=== PATIENT | male | born 1945 | race Caucasian/White ===

== ENCOUNTER 2018-03-17 02:58 | Emergency (ER) | payer MEDICARE ==
[~2018-03-17] VITALS: Ht 175.3 cm; Wt 72.6 kg
[2018-03-17] MEDS ORDERED: FAMOTIDINE 20 MG/2 ML VIAL IV STA (03:29)
[2018-03-17] MEDS ORDERED: DONNATAL/LIDOCAINE/MAALOX 30 ML SUSP PO ONE (03:30)
--- NOTE | 2018-03-17 04:30 | Diagnostic Imaging Report ---
Exam: PA and lateral view of the chest Indication: Chest pain Comparison: None next Findings: No consolidations, pleural effusions or pneumothorax. Normal appearance of the cardiomediastinal silhouette and bones. Surgical clips in the left upper quadrant of the abdomen. Impression: No acute thoracic abnormality. Signed by: Dr. Nevaeh Ware M.D. on 03/17/2018 4:26 AM
== END 2018-03-17 04:44 | disposition home or self-care (01) ==
LOC: FSED 02:58
DX: K21.9 Gastro-esophageal reflux disease without esophagitis (principal); R07.89 Other chest pain; J45.909 Unspecified asthma, uncomplicated; I10 Essential (primary) hypertension; Z82.49 Family history of ischemic heart disease and other diseases of the circulatory system; R10.13 Epigastric pain; Q12.0 Congenital cataract; K22.4 Dyskinesia of esophagus
CPT/HCPCS: 71046; 80053; 81003; 82553; 83880; 84484; 85025; 93005; 99284

== ENCOUNTER 2022-08-19 14:12 | Emergency (ER) | payer MEDICARE ==
[~2022-08-19] VITALS: Ht 175.3 cm; Wt 72.6 kg
[2022-08-19] MEDS ORDERED: ALBUTEROL/IPRATROPIUM 3 ML NEB NEB ONE (16:15)
[2022-08-19] MEDS ORDERED: ALBUTEROL/IPRATROPIUM 3 ML NEB ONE (16:24)
[2022-08-19] MEDS ORDERED: PREDNISONE20 MG PO (16:27)
[2022-08-19 16:45] VITALS: BP 142/76
== END 2022-08-19 16:46 | disposition home or self-care (01) ==
LOC: FSED 14:31
DX: R06.02 Shortness of breath (principal); J45.909 Unspecified asthma, uncomplicated; I10 Essential (primary) hypertension; E78.5 Hyperlipidemia, unspecified; K21.9 Gastro-esophageal reflux disease without esophagitis; F03.90 Unspecified dementia, unspecified severity, without behavioral disturbance, psychotic disturbance, mood disturbance, and anxiety; R94.31 Abnormal electrocardiogram [ECG] [EKG]
CPT/HCPCS: 71046; 93005; 99284